=== PATIENT | female | born 1960 | race Two or more races ===

== ENCOUNTER 2024-06-07 10:43 | Outpatient (AMB) | payer MEDICARE, MEDICAID, SELFPAY ==
[2024-06-07 11:38] VITALS: BP 153/78; PULSE 71; RESP 18; TEMP 36.2; O2SAT 98; BMI 41.2
--- NOTE | 2024-06-07 11:38 | PD.ORTHCLVIS ---
Vital signs 06/07/24 11:38 Height 1.57 m Height Method Stated Weight 101.69 kg Weight Measurement Method Standing Scale BMI 41.2 BP 153/78 H Blood Pressure Source Automatic Cuff Blood Pressure Location Right Upper Arm Position Sitting Respiration 18 Pulse 71 Pulse Source Monitor Temp 97.2 F Temp Source Temporal Artery Scan Pulse Oximetry (%) 98 Oxygen Delivery Method Room Air Med/Allergies Allergies & Medications Allergies lisinopril Allergy (Intermediate, Verified 06/07/24 11:38) Swelling of Lip/Tongue/Throat Medication Reconciliation meloxicam 7.5 mg tablet 7.5 mg PO BID #45 tabs 06/30/23 [Rx Confirmed 06/07/24] albuterol sulfate 2.5 mg/3 mL (0.083 %) solution for nebulization 2.5 mg inhalation Q4H PRN Shortness Of Breath 10/01/23 [History Confirmed 06/07/24] ergocalciferol (vitamin D2) 1,250 mcg (50,000 unit) capsule (Vitamin D2) 1,250 mcg PO QWEEK 10/01/23 [History Confirmed 06/07/24] fluticasone 500 mcg-salmeterol 50 mcg/dose blistr powdr for inhalation (Wixela Inhub) 1 inh inhalation BID 10/01/23 [History Confirmed 06/07/24] ibuprofen 800 mg tablet 800 mg PO Q8H PRN Pain 10/01/23 [History Confirmed 06/07/24] losartan 50 mg tablet 50 mg PO BID 10/01/23 [History Confirmed 06/07/24] meclizine 25 mg tablet 25 mg PO BID PRN Dizziness 10/01/23 [History Confirmed 06/07/24] metoprolol tartrate 75 mg tablet 75 mg PO BID 10/01/23 [History Confirmed 06/07/24] omeprazole 20 mg tablet,delayed release 20 mg PO QDAY 10/01/23 [History Confirmed 06/07/24] acetaminophen 325 mg tablet 650 mg (2 x 325 mg) PO QID #90 tabs 10/07/23 [Rx Confirmed 06/07/24] aspirin 81 mg tablet,delayed release 81 mg PO BID #60 tabs 10/07/23 [Rx Confirmed 06/07/24] doxycycline hyclate 100 mg tablet 100 mg PO BID #14 tabs 10/07/23 [Rx Confirmed 06/07/24] gabapentin 300 mg capsule 300 mg PO .qhs #30 caps 10/07/23 [Rx Confirmed 06/07/24] oxycodone 5 mg tablet 5 mg PO Q6H PRN pain #28 tabs 10/07/23 [Rx Confirmed 06/07/24] sennosides 8.6 mg-docusate sodium 50 mg tablet (Senna-S) 1 tab-cap PO QDAY #30 tabs 10/07/23 [Rx Confirmed 06/07/24] oxycodone 5 mg tablet 5 mg PO Q6H PRN pain #28 tabs 10/14/23 [Rx Confirmed 06/07/24] acetaminophen 325 mg tablet 650 mg (2 x 325 mg) PO QID #90 tabs 10/20/23 [Rx Confirmed 06/07/24] oxycodone 5 mg tablet 5 mg PO Q6H PRN pain #28 tabs 10/23/23 [Rx Confirmed 06/07/24] Subjective Visit Visit for: follow up visit Immunization / Flu Flu Vaccine in the Last 12 Months: No Flu Vaccine Exclusion Criteria: Refused by Patient Pain Pain level (0-10): 5 Pain duration: ALL DAY Pain quality: sharp, dull and aching Associated signs & symptoms: none Ambulatory data Ambulatory device: cane Treatments Improvement with previous injections: No Improvement with PT: No Improvement with NSAIDS: no Review of Systems Review of Systems: All systems negative unless otherwise noted in HPI. Assessment and Plan Advanced Care Planning Discussion Advance care planning discussed with:: patient Office Procedures GNS Level of Care Nursing/Assessment Patient Status: Established Patient Nursing Assessment/Reassesment: Medication Reconciliation, Update PMH in EMR and Vital Signs Coordination of Care: Complex Care and Chronic Disease 1-5, Education Complex Pt/Fam, Consent,records obtained, informed consent, 1 Ins Authorization and Staff clarify orders Established Patient Charge Established Patient Point Assignment: 105 Established Patient Point Charge: EP Level 3 (80-115) Past Medical History Past Medical History Have you ever been diagnosed with any of the following: Neurological Problems Seizures: No Cardiology Problems Congestive Heart Failure: No Hypertension: Yes Varicose Veins: Yes Respiratory Problems Chronic Obstructive Pulmonary Disease (COPD): No Asthma: Yes Smoking: No Smoking Exposure: No Stomache/Intestinal Problems Obesity: Yes Genital/Urinary Problems Renal Disease: No Reproductive Problems Previous Pregnancies: Yes Musculoskeletal Problems Arthritis: Yes Endocrine Problems Diabetes Mellitus Type 1: No Diabetes Mellitus Type 2: No Psychologic Problems Anxiety: Yes Other Problems Hospitalization: Yes Shingles: No Blood Transfusions: No Blood Transfusion Reaction: No Anesthesia Reactions: No Chicken Pox: Yes Cancer: No Surgical History Hysterectomy: Yes
== END 2024-06-07 12:00 | disposition home or self-care (01) ==
PROVIDERS: PCP Physician Assistant; Referring Provider Physician Assistant; Supervising Provider Orthopaedic Surgery Adult Reconstructive Orthopaedic Surgery; Visit Provider Orthopaedic Surgery Adult Reconstructive Orthopaedic Surgery
DX: R52 Pain, unspecified (principal); I10 Essential (primary) hypertension
CPT/HCPCS: 99213; G0463

== ENCOUNTER 2024-07-05 09:33 | Outpatient (AMB) | payer MEDICARE, MEDICAID, SELFPAY ==
--- NOTE | 2024-07-05 09:28 | PD.ORTHTELE ---
Med/Allergies Allergies & Medications Allergies lisinopril Allergy (Intermediate, Verified 07/05/24 09:28) Swelling of Lip/Tongue/Throat Medication Reconciliation meloxicam 7.5 mg tablet 7.5 mg PO BID #45 tabs 06/30/23 [Rx Confirmed 07/05/24] albuterol sulfate 2.5 mg/3 mL (0.083 %) solution for nebulization 2.5 mg inhalation Q4H PRN Shortness Of Breath 10/01/23 [History Confirmed 07/05/24] ergocalciferol (vitamin D2) 1,250 mcg (50,000 unit) capsule (Vitamin D2) 1,250 mcg PO QWEEK 10/01/23 [History Confirmed 07/05/24] fluticasone 500 mcg-salmeterol 50 mcg/dose blistr powdr for inhalation (Wixela Inhub) 1 inh inhalation BID 10/01/23 [History Confirmed 07/05/24] ibuprofen 800 mg tablet 800 mg PO Q8H PRN Pain 10/01/23 [History Confirmed 07/05/24] losartan 50 mg tablet 50 mg PO BID 10/01/23 [History Confirmed 07/05/24] meclizine 25 mg tablet 25 mg PO BID PRN Dizziness 10/01/23 [History Confirmed 07/05/24] metoprolol tartrate 75 mg tablet 75 mg PO BID 10/01/23 [History Confirmed 07/05/24] omeprazole 20 mg tablet,delayed release 20 mg PO QDAY 10/01/23 [History Confirmed 07/05/24] acetaminophen 325 mg tablet 650 mg (2 x 325 mg) PO QID #90 tabs 10/07/23 [Rx Confirmed 07/05/24] aspirin 81 mg tablet,delayed release 81 mg PO BID #60 tabs 10/07/23 [Rx Confirmed 07/05/24] doxycycline hyclate 100 mg tablet 100 mg PO BID #14 tabs 10/07/23 [Rx Confirmed 07/05/24] gabapentin 300 mg capsule 300 mg PO .qhs #30 caps 10/07/23 [Rx Confirmed 07/05/24] oxycodone 5 mg tablet 5 mg PO Q6H PRN pain #28 tabs 10/07/23 [Rx Confirmed 07/05/24] sennosides 8.6 mg-docusate sodium 50 mg tablet (Senna-S) 1 tab-cap PO QDAY #30 tabs 10/07/23 [Rx Confirmed 07/05/24] oxycodone 5 mg tablet 5 mg PO Q6H PRN pain #28 tabs 10/14/23 [Rx Confirmed 07/05/24] acetaminophen 325 mg tablet 650 mg (2 x 325 mg) PO QID #90 tabs 10/20/23 [Rx Confirmed 07/05/24] oxycodone 5 mg tablet 5 mg PO Q6H PRN pain #28 tabs 10/23/23 [Rx Confirmed 07/05/24] Subjective Visit Visit for: follow up visit and x-rays Immunization / Flu Flu Vaccine in the Last 12 Months: No Flu Vaccine Exclusion Criteria: Refused by Patient History of Present Illness Chief complaint: XRAY RESULTS Patient is a 63-year-old female who is here for MRI results. She is status post knee replacement but has pain radiating down both the legs. We had high suspicion for spinal stenosis. Pain Pain level (0-10): 4 Pain duration: ON AND OFF Pain location: inside (medial) Pain quality: dull and aching Pain timing: increases with activity Associated signs & symptoms: none Ambulatory data Ambulatory device: none Treatments Improvement with previous injections: No Improvement with PT: No Improvement with NSAIDS: no Review of Systems Review of Systems: All systems negative unless otherwise noted in HPI. Assessment and Plan Problem List (1) Status post total right knee replacement: Status: Acute Plan: Patient is a pleasant 63-year-old female with bilateral radicular symptoms and symptoms consistent with spinal stenosis. We ordered an MRI and this demonstrates multilevel lumbar spinal stenosis and congenitally short pedicles. We will refer the patient to a spine surgeon. I will send her to someone in [place] (2) Spinal stenosis: Status: Acute Advanced Care Planning Discussion Advance care planning discussed with:: patient Office Procedures GNS Level of Care Nursing/Assessment Patient Status: Established Patient Nursing Assessment/Reassesment: Medication Reconciliation, Update PMH in EMR and Vital Signs Coordination of Care: Complex Care and Chronic Disease 1-5, Education Complex Pt/Fam, Consent,records obtained, informed consent, 1 Ins Authorization, Results/Orders obtained and Staff clarify orders Established Patient Charge Established Patient Point Assignment: 110 Telehealth Telemed Phone/Video with patient at home & Dr,PA,SUPERVISOR DECORATING: Yes
== END 2024-07-05 09:36 | disposition home or self-care (01) ==
LOC: HODSRG 09:33
PROVIDERS: PCP Physician Assistant; Referring Provider Physician Assistant; Supervising Provider Orthopaedic Surgery Adult Reconstructive Orthopaedic Surgery; Visit Provider Orthopaedic Surgery Adult Reconstructive Orthopaedic Surgery
DX: Z96.651 Presence of right artificial knee joint (principal); M48.061 Spinal stenosis, lumbar region without neurogenic claudication
CPT/HCPCS: 99212; G0463